=== PATIENT | male | born 1965 | race African-American/Black ===

== ENCOUNTER 2016-12-03 11:55 | Inpatient (IN) | payer OTHER ==
[~2016-12-03] VITALS: Ht 182.9 cm; Wt 174.2 kg
--- NOTE | ~2016-12-03 | CARDNUC ---
[facility] [place] [address] CARDIAC NUCLEAR IMAGING REPORT Name: EZEKIEL CARRN Room #: 441-P [facility] IN .R.#: [id number] Admission: 12/03/16 Attend Phys: Dale Hernandez Discharge: 12/05/16 Date of : 69 Date of Service: 12/08/16 1259 Report #: [id number] THIS REPORT FOR: //name// CC: FAM unknown Noam De La Cruz DATE OF SERVICE: 12/04/2016 TYPE OF STUDY: Nuclear stress test. ORDERING PHYSICIAN: Catracho Mcelroy MD [facility]. INDICATIONS: Chest pain, shortness of breath, and history of coronary artery disease. RISK FACTORS: Include age, hyperlipidemia, and hypertension. MEDICATIONS: Include hydralazine, aspirin, Lipitor, Plavix, and nifedipine. LEXISCAN STUDY: 0.4 mg was infused over approximately 10 seconds. During the infusion, the patient had no chest pain. Resting blood pressure was 204/93 with heart rate of 80. Peak blood pressure decreased to 186/75 with heart rate of 103. Recovery blood was 187/93 with heart rate of 87. Resting ECG shows a sinus rhythm. During the infusion, there were no significant ST segment abnormalities. Recovery was normal. The patient underwent a 2-day protocol. The rest dose of 39.0 and stress dose of 39.7 mCi of IV Cardiolite, which was injected at peak infusion, and the patient was imaged in the supine position only. FINDINGS: Review of the raw dataset reveals a moderate amount of extracardiac uptake on both datasets. Review of the SPECT dataset at rest reveals a moderate size, but severe intensity basal lateral defect inferiorly. There was uniform perfusion in other segments. When imaged following vasodilator stress, the defect in the inferior and lateral wall becomes larger. A portion of the anterior wall is also included, there was a large reversible anterior and anterolateral defect in addition to the basolateral defect. The chamber is not dilated. There was inferior hypokinesis, severe ejection fraction is 55% overall though. TID was mildly elevated. IMPRESSION: 1. Clinical portion negative. 2. Electrocardiographic portion negative. 3. Nuclear portion was positive. [address] [address] CARDIAC NUCLEAR IMAGING REPORT Name: EZEKIEL CARR [place] Room #: [address] [place] [address] [place] ..#: [id number] Admission: 12/03/16 Attend Phys: Dale Hernnadez Discharge: 12/05/16 Date of : 69 Date of Service: 12/08/16 1259 Report #: [id number] 4. Exercise capacity was not assessed. In conclusion, this study is abnormal. There is a large inferolateral defect, compatible with ischemia, but there is also involvement of the anterior wall. Findings are compatible with multivessel disease. Left ventricular systolic function is preserved. It is noted that the chamber was dilated following infusion. <ELECTRONICALLY SIGNED> By: Catracho Mcelroy MD, FACC 12/10/16 0847 1259 1646 Catracho Mcelroy MD, FACC /nt
--- NOTE | ~2016-12-03 | EKG ---
[address] [place] [address] ELECTROCARDIOGRAM REPORT Name: EZEKIEL CARR Room #: 441-P [facility] IN .R.#: [id number] Admission: 12/03/16 Attend Phys: Noam De La Cruz MD Discharge: 12/05/16 Date of : 69 Report #: [id number] THIS REPORT FOR: //name// [facility] ED Test Date: 2016-12-03 Test Time: 12:03:29 Pat Name: EZEKIEL CARR Department: Room: [facility] Gender: M Painter Spray: RINA : 1965 Requested By: Bhavna Almanza Order Number: [id number] MD: Ttio Quarles Measurements Intervals Elida Rate: 85 P: 43 AZ: 237 QRS: 9 QRSD: 102 T: 54 QT: 374 QTc: 445 Interpretive Statements Sinus rhythm Prolonged AZ interval ST elev, probable normal early repol pattern Baseline wander in lead(s) V2 Compared to ECG 07/29/2013 08:11:16 First degree AV block now present ST (T wave) deviation now present Electronically Signed On 12-07-2016 8:17:25 CDT by Tito Quarles [email or web address] <ELECTRONICALLY SIGNED> By: Tito Quarles MD 12/07/16 0817 1203 1203 Tito Quarles MD /EPI
--- NOTE | ~2016-12-03 | HC ---
[facility] [place] [address] CONSULTATION Name: EZEKIEL CARR [place] Room #: 441-P [facility] IN ..#: [id number] Admission: 12/03/16 Attend Phys: Noam De La Cruz MD Discharge: 12/05/16 Date of : 69 Report #: [id number] THIS REPORT FOR: //name// CC: FAM unknown Noam De La Cruz DATE OF SERVICE: 12/04/2016 REASON FOR CONSULTATION: Chronic kidney disease. HISTORY OF PRESENT ILLNESS: The patient is well known to us with chronic kidney disease, diabetic nephropathy seen by Dr. Lott in the office and by other members of our group in hospital, presents with shortness of breath and chest pain. His serum creatinine is 2.4, which has improved from 2.6 two months ago in the office. He presents with shortness of breath and chest pain. He has had a history of previous cardiac stenting. PAST MEDICAL HISTORY: He has had diabetes mellitus. He has some peripheral neuropathy. He has had 2 cardiac stents in the past and according to his account, developed acute kidney injury with both of these episodes with some degree of resolution. HOME MEDICATIONS: Aspirin 325 mg daily, atorvastatin 80 mg daily, carvedilol 25 mg b.i.d., Plavix 75 mg daily, furosemide 40 mg daily, hydralazine 75 mg t.i.d., insulin, losartan 100 mg daily, nifedipine 60 mg daily, Ranexa 500 mg q. 12 and spironolactone 25 mg daily. FAMILY HISTORY: Strongly positive for renal disease, brother who had renal disease, hypertension, cardiac disease, no diabetes, . Father had also end-stage renal disease, dialysis and and cousin who had lupus and renal disease, dialysis and also has . REVIEW OF SYSTEMS: GENERAL: He has been feeling reasonably well. EYES: His vision is reasonably good. 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 ENT: Hearing okay, swallows okay. No mouth sores or ulcers. ENDOCRINE: Positive for the diabetes. RESPIRATORY: Does get somewhat easily short-winded. CARDIAC: He has been having some angina or arrhythmias. GASTROINTESTINAL: No nausea, vomiting, diarrhea or bloody stools. GENITOURINARY: Good urinary stream without hematuria or history of stones. NEUROLOGIC: He just feels a little numbness in the feet. No seizure or syncope. SKELETAL: At times, he does have arthralgias. [facility] [address] [place] [address] CONSULTATION Name: EZEKIEL CARR Room #: 441-P [facility] IN [facility].#: [id number] Admission: 12/03/16 Attend Phys: Noam De La Cruz MD Discharge: 12/05/16 Date of : 69 Report #: [id number] SOCIAL HISTORY: He works at [employer], no cigarettes, very rare beer. PHYSICAL EXAMINATION: GENERAL: This is a very overweight pleasant, comfortable young man, seen in his hospital bed. SKIN: Unremarkable. SKELETAL: Well developed, well nourished. HEENT: Extraocular movements are full. Vision intact. No scleral icterus. Hearing intact. Mucous membranes moist. NECK: Supple, no carotid bruits. CHEST: Clear to auscultation. HEART: Regular. ABDOMEN: Soft and nontender. EXTREMITIES: Show no peripheral edema. Peripheral pulses intact. NEUROLOGIC: A little bit of numbness in the feet. LABORATORY DATA: The hemoglobin is 10.4, sodium 137, potassium 5.1, chloride 108, bicarbonate 23, creatinine 2.4, BUN 36. ASSESSMENT AND PLAN: 1. Chronic kidney disease. Creatinine is a little bit better than when last seen in the office. He has obvious diabetic nephropathy. Urine protein studies will be of some interest and I will order those. He seems to be on appropriate medications for his condition. His creatinine is actually a little bit better than when he was last seen in the office. For some reason, he was given a liter of IV saline that was yesterday. He does not any fluids running today and he seems comfortable, having just a little bit of chest discomfort. 2. 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 3. Hypertension. 4. Coronary artery disease, status post stents x 2. 5. History of congestive heart failure. <ELECTRONICALLY SIGNED> By: Aldo Russ MD 12/07/16 1048 [id number] 1505 Aldo Russ MD /nt
[~2016-12-03 11:55] MED LIST: AMLODIPINE BESY10 MG PO; ASPIRIN EC325 M1 PO; BYSTOLIC10 MG PO; BYSTOLIC2.5 MG; CIALIS20 MG PO; EFFIENT10 MG PO; LEVEMIR INJECTION; LEVEMIR SUBQ; LIPITOR20 MG PO; LIPITOR80 MG PO; NITROGLYCERIN0.4 MG SL; NORVASC10 MG PO; NOVOLOG100 UNIT/1 SQ; ZESTORETIC 20-1 EACH PO; ZETIA10 MG PO
[2016-12-03 12:01] VITALS: BP 155/85
[2016-12-03] MEDS ORDERED: COREG25 MG PO (13:01)
[2016-12-03] MEDS ORDERED: COZAAR 50 MG TA50 M2 PO (13:02)
[2016-12-03] MEDS ORDERED: RANEXA500 MG PO (13:02)
[2016-12-03] MEDS ORDERED: PLAVIX 75 MG TA75 M1 PO (13:04)
[2016-12-03] MEDS ORDERED: ALDACTONE25 MG PO (13:04)
[2016-12-03] MEDS ORDERED: HYDRALAZINE 2525 MG PO (13:05)
[2016-12-03] MEDS ORDERED: AFEDITAB CR60 MG PO (13:05)
[2016-12-03] MEDS ORDERED: LASIX 40 MG TAB40 M2 PO (13:06)
[2016-12-03 13:07] LABS: ABSOLUTE NEUTROPHILS 7.1 thou/uL (1.4-8.2); BASOPHILS 0.2 % (0.0-2.0); EOSINOPHILS 2.6 % (0.0-3.0); HEMATOCRIT 30.9 % (42.0-52.0); HEMOGLOBIN 10.4 gm/dL (14.0-18.0); LYMPHOCYTES 21.2 % (24.0-44.0); MCH 25.5 pg (26.0-34.0); MCHC 33.7 g/dL (28.0-37.0); MCV 75.8 fL (80.0-100.0); PLATELET COUNT 262 thou/uL (150-400); RBC 4.08 mil/uL (4.50-6.00); RDW 17.9 % (10.5-14.5); WBC 10.4 thou/uL (4.0-11.0)
[2016-12-03 13:10] LABS: MANUAL DIFF NO
[2016-12-03 13:12] LABS: ANION GAP 6 mmol/L (7-16); BUN 36 mg/dL (7-18); CALCIUM 8.9 mg/dL (8.5-10.1); CHLORIDE 108 mmol/L (98-107); CO2 23 mmol/L (21-32); CREATININE 2.4 mg/dL (0.7-1.3); POTASSIUM 5.1 mmol/L (3.5-5.1); SODIUM 137 mmol/L (136-145)
[2016-12-03 13:22] LABS: GLUCOSE 177 mg/dL (74-106)
[2016-12-03 13:27] LABS: NT-PRO BRAIN NAT PEPTIDE 129 pg/mL (<300); TROPONIN-I < 0.04 ng/mL (<0.04-0.07)
[2016-12-03 15:22] VITALS: BP 166/81
[2016-12-03 15:40] VITALS: BP 136/62
[2016-12-03 19:08] VITALS: BP 155/66
[2016-12-04 04:59] VITALS: BP 148/67
[2016-12-04 06:48] LABS: CHOLESTEROL 149 mg/dL (<200); HDL CHOLESTEROL 49 mg/dL (>40); LDL CHOLESTEROL 89 mg/dL (<100); TRIGLYCERIDE 56 mg/dL (<150); VLDL 11 mg/dL (<40)
[2016-12-04 06:49] LABS: SERUM ASSESSMENT Clear
[2016-12-04 07:14] VITALS: BP 150/79
[2016-12-04 16:00] VITALS: BP 139/79
[2016-12-04 20:14] VITALS: BP 142/56
[2016-12-05 08:00] VITALS: BP 164/78
[2016-12-05 10:03] VITALS: BP 164/78
[2016-12-05 10:27] LABS: CALCIUM 9.2 mg/dL (8.5-10.1); CREATININE 2.5 mg/dL (0.7-1.3); POTASSIUM 5.5 mmol/L (3.5-5.1)
== END 2016-12-05 11:00 | disposition home or self-care (01) | DRG 206 ==
LOC: ER 11:55 → EROBS 14:32 → 4S 14:32
PROVIDERS: Emergency Medicine; Family Medicine; Nurse Practitioner
DX: M94.0 Chondrocostal junction syndrome [Tietze] (principal); N17.9 Acute kidney failure, unspecified; I13.0 Hypertensive heart and chronic kidney disease with heart failure and stage 1 through stage 4 chronic kidney disease, or unspecified chronic kidney disease; Z68.43 Body mass index [BMI] 50.0-59.9, adult; E11.21 Type 2 diabetes mellitus with diabetic nephropathy; E11.22 Type 2 diabetes mellitus with diabetic chronic kidney disease; N18.9 Chronic kidney disease, unspecified; I50.9 Heart failure, unspecified; E11.42 Type 2 diabetes mellitus with diabetic polyneuropathy; I25.10 Atherosclerotic heart disease of native coronary artery without angina pectoris; K21.9 Gastro-esophageal reflux disease without esophagitis; E78.5 Hyperlipidemia, unspecified; G47.33 Obstructive sleep apnea (adult) (pediatric); D63.8 Anemia in other chronic diseases classified elsewhere; E66.01 Morbid (severe) obesity due to excess calories; Z95.820 Peripheral vascular angioplasty status with implants and grafts; Z91.013 Allergy to seafood; Z84.1 Family history of disorders of kidney and ureter; Z82.49 Family history of ischemic heart disease and other diseases of the circulatory system; Z79.899 Other long term (current) drug therapy; Z79.4 Long term (current) use of insulin
CPT/HCPCS: 10100